=== PATIENT | male | born 1955 | race Caucasian/White ===

== ENCOUNTER 2017-04-09 07:15 | Day surgery (SDC) | payer BC ==
[2017-04-09 07:16] VITALS: BMI 22.8
--- NOTE | 2017-04-09 07:50 | ED PDOC ---
Arrival/HPI - General Chief Complaint: Male Genitourinary Time Seen by Provider: 04/09/17 07:44 Historian: Patient - History of Present Illness Narrative History of Present Illness (Text): 04/09/17 07:47 Patient is a 61 yo male with history of recent prostate biopsy by Dr. Larson 2 days ago, states he has difficulty urinating for past four hours with small amounts of blood with urination. Denies headache or chest pain or shortness of breath. Reports lower abdominal discomfort. No back pain. No fevers or chills. Past Medical History - Infectious Disease Hx of Infectious Diseases: None - Cardiac Hx Hypertension: Yes Hx Pacemaker: No - Neurological Hx Paralysis: No - Hematological/Oncological Hx Blood Transfusions: No Hx Blood Transfusion Reaction: No - Musculoskeletal/Rheumatological Hx Musculoskeletal Disorders: No - Genitourinary/Gynecological Other/Comment: PROSTATE BIOPSY DONE - Psychiatric Hx Psychophysiologic Disorder: No Hx Emotional Abuse: No Hx Physical Abuse: No Hx Substance Use: No - Anesthesia Hx Anesthesia Reactions: No Hx Malignant Hyperthermia: No - Suicidal Assessment Feels Threatened In Home Enviroment: No Family/Social History Smoking Status: Never Smoked Hx Alcohol Use: No Hx Substance Use: No Allergies/Home Meds Allergies/Adverse Reactions: Allergies No Known Allergies Allergy (Verified 04/09/17 07:37) Home Medications: Home Meds Medication Instructions Recorded Confirmed Amlodipine Besylate 10 mg PO DAILY 11/06/12 11/06/12 Aspirin [Aspir 81] 81 mg PO DAILY 11/06/12 04/09/17 Esomeprazole Magnesium [Nexium] 40 mg PO DAILY PRN 11/06/12 04/09/17 Ranolazine [Ranexa] 500 mg PO DAILY 11/06/12 04/09/17 Tamsulosin [Flomax] 0.4 mg PO DAILY 11/06/12 04/09/17 Vitamin B Complex & Vitamin C 1 tab PO DAILY 11/06/12 04/09/17 [Strovite] Acetaminophen/Oxycodone Hydr 1 tab PO Q6 PRN 11/12/12 04/09/17 [Percocet 325 mg-5 mg] Review of Systems - Physician Review All systems were reviewed & negative as marked: Yes - Review of Systems Respiratory: absent: SOB Cardiovascular: absent: Chest Pain Gastrointestinal: Abdominal Pain. absent: Nausea, Vomiting Genitourinary Male: Urinary Output Changes Musculoskeletal: absent: Back Pain Skin: absent: Rash Neurological: absent: Headache, Focal Weakness Physical Exam Vital Signs Reviewed: Yes Vital Signs Temp Pulse Resp BP Pulse Ox 04/09/17 07:31 98.5 F 99 H 17 163/83 H 100 Temperature: Afebrile Appearance: Positive for: Uncomfortable Pain Distress: Moderate Mental Status: Positive for: Alert and Oriented X 3 - Systems Exam Head: Present: Atraumatic Mouth: Present: Moist Mucous Membranes Neck: No: Meningeal Signs Respiratory/Chest: Present: Clear to Auscultation. No: Respiratory Distress Cardiovascular: Present: Regular Rate and Rhythm Abdomen: Present: Tenderness (suprapubic tenderness and fullness). No: Peritoneal Signs Genitourinary Male: No: Penile Discharge, Testicle Tenderness, Penile Swelling, Erythema Back: No: CVA Tenderness Lower Extremity: No: Edema Neurological: Present: Motor Func Grossly Intact, Normal Sensory Function Skin: Present: Warm Psychiatric: Present: Alert Disposition/Present on Arrival - Present on Arrival History of DVT/PE: No History of Uncontrolled Diabetes: No Urinary Catheter: No History of Decub. Ulcer: No History Surgical Site Infection Following: None - Disposition
[2017-04-09 08:59] LABS: BASO # 0.01 K/mm3 (0.0-2.0); BASO % 0.2 % (0.0-3.0); EOS % 0.3 % (1.5-5.0); GRAN # 5.62 (1.4-6.5); GRAN % 85.4 % (50.0-68.0); HEMOGLOBIN 15.8 g/dL (14.0-18.0); LYMPH # 0.6 (1.2-3.4); LYMPH % 8.8 % (22.0-35.0); MEAN CELL VOLUME 85.7 fl (80.0-105.0); MEAN CORPUSCULAR HEMOGLOBIN 30.6 pg (25.0-35.0); MEAN CORPUSCULAR HGB CONC 35.7 g/dl (31.0-37.0); MEAN PLATELET VOLUME 10.2 fl (7.0-11.0); MONO # 0.4 (0.1-0.6); MONO % 5.3 % (1.0-6.0); RBC 5.17 10^6/uL (3.5-6.1); RED CELL DISTRIBUTION WIDTH 12.8 % (11.5-14.5); WHITE BLOOD COUNT 6.6 10^3/ul (4.5-11.0)
[2017-04-09] MEDS ORDERED: Morphine 2 mg/ml ISec IVP STA (09:27)
[2017-04-09 10:25] LABS: ALB/GLOB RATIO 1.1 (1.1-1.8); ALBUMIN 4.3 g/dL (3.0-4.8); ALT/SGPT 36 U/L (7-56); AST/SGOT 29 U/L (17-59); BLOOD UREA NITROGEN 20 mg/dL (7-21); CALCIUM 10.4 mg/dL (8.4-10.5); GFR AFRICAN-AMERICAN > 60; GFR NON-AFRICAN AMERICAN > 60
[2017-04-09] MEDS ORDERED: cefTRIAXone 1 gm 1 GM/100 ML BAG IVPB STA (11:57)
[2017-04-09 12:16] VITALS: TEMP 97.8
[2017-04-09] MEDS ORDERED: Midazolam 2 MG/2 ML VIAL ONE (13:42)
[2017-04-09] MEDS ORDERED: Etomidate 20 mg/10ml Inj IV ONE (13:42)
[2017-04-09] MEDS ORDERED: Propofol 10 mg/ml Inj (20 ML) ONE (13:43)
[2017-04-09] MEDS ORDERED: Naloxone 0.4 mg/ml Inj (Adult) ONE (13:46)
[2017-04-09] MEDS ORDERED: Sevoflurane - Inhalation Anesthetic Liq (250 ml) ONE (14:06)
[2017-04-09] MEDS ORDERED: ePHEDrine 50 mg/ml Inj ONE (14:10)
[2017-04-09] MEDS ORDERED: Morphine 2 mg/ml ISec IVP PRN (14:25)
[2017-04-09] MEDS ORDERED: Sodium Chloride 0.9% 1,000 ML IV SCH (14:30)
[2017-04-09 14:51] VITALS: RESP 18
[2017-04-09 15:01] VITALS: O2SAT 99
[2017-04-09 15:39] VITALS: BP 133/72; PULSE 81
--- NOTE | 2017-04-10 08:17 | HP ---
CHIEF COMPLAINT: Urinary retention. HISTORY OF PRESENT ILLNESS: This is a 61-year-old male who is known to me. The patient has a history of enlarged prostate, prior episodes of urinary retention. He recently had a prostate biopsy. He was doing well until last night when he felt he was unable to void and passed small amount of blood. He denies any fevers or chills. Denies any cough, shortness of breath. Denies any back pain. PAST MEDICAL HISTORY: Significant for hypertension, BPH, elevated PSA. HOME MEDICATIONS: Include Norvasc, aspirin, Ranexa, Flomax, vitamins, Percocet. ALLERGIES: NO KNOWN DRUG ALLERGIES. FAMILY HISTORY: Noncontributory. SOCIAL HISTORY: No smoking or EtOH use. PHYSICAL EXAMINATION: The patient was seen in the emergency room. He was in mild distress, feeling like he needed to urinate. I attempted to pass a 16 coude catheter. It appears to be getting hung up in his prostatic urethra, possibly a false passage from prior attempts. I attempted to pass filiforms, multiple filiforms were placed and did not appear to be entering the bladder. No dilation was then done. Decision was made to bring the patient to the OR for Mcintyre catheter placement under vision. OPERATIVE REPORT: The patient was brought to the operating room and he received general anesthesia. A 21-Czech cystoscope was placed in the patient's urethra and advanced proximally under direct vision. There was a false passage seen in the prostatic urethra undermining the enlarged middle lobe to the right side and is able to bypass this into the true channel and advanced the scope up into the bladder. A full survey inspection of bladder was then performed which revealed no stones, tumors or foreign bodies of the bladder. There was some mild petechial hemorrhaging after releasing a large amount of urine from the bladder. Both ureteral orifices were visualized and appeared within normal limits. There was no active bleeding noted and at this point, a sensor wire was obtained. The sensor wire was passed through the cystoscope and guided into the bladder where it was coiled and at this point, the bladder was drained and the cystoscope was removed. A 20-[place]zech [place] tip Mcintyre catheter was then placed over the wire and advanced proximally and advanced up into the bladder. Urine was then obtained and the wire was then removed. The balloon was then inflated and the [place] tip was draining well. It was irrigated multiple times with return of lightly tinged urine. At this point, the procedure was completed. The patient was returned to the supine position and taken to the recovery room awake and in stable condition. Plan is to leave the Mcintyre catheter in place. The patient received IV antibiotics today and I will send him home on oral antibiotics and Pyridium. He will follow up in my office for a voiding trial and further instructions in a few days. Kenji Larson MD
== END 2017-04-09 21:02 | disposition home or self-care (01) ==
LOC: ED 07:15 → SDS 12:15 → ED 12:30 → 2A 14:49 → SDS 21:02
PROVIDERS: ATTEND Urology
DX: N40.1 Benign prostatic hyperplasia with lower urinary tract symptoms (principal); R33.9 Retention of urine, unspecified; I10 Essential (primary) hypertension; Z79.82 Long term (current) use of aspirin
CPT/HCPCS: 52000; 80053; 85025; 96365; 96375; 99285; C1769; J0696; J2250; J2270; J2310; J2704; J2765; J3010; J7040